=== PATIENT | male | born 1955 | race Caucasian/White ===

== ENCOUNTER 2016-12-11 07:53 | Day surgery (SDC) | payer OTHER ==
[2016-12-06 11:56] VITALS: BMI 29.1
[~2016-12-11 07:53] MED LIST: LACTATED RINGERS 1,000 ML IV SCH
[2016-12-11] MEDS ORDERED: LIDOCAINE 1% 20 ML VIAL (10MG/ML) FOR IV START INTRADERMA ONE (07:59)
[2016-12-11 08:11] VITALS: RESP 16; TEMP 98.3
[2016-12-11] MEDS ORDERED: PROPOFOL 10 MG/ML 20 ML VIAL IV ONE (09:06)
--- NOTE | 2016-12-11 09:33 | P.OP ---
Date of Procedure: 12/11/16 Preoperative Diagnosis: Screening Postoperative Diagnosis: Sigmoid polyp. Rectal polyp. Procedure(s) Performed: Colonoscopy and snare polypectomy 2 Implants: Anesthesia: MAC Surgeon: Gio Hwang Estimated Blood Loss (ml): 0 Pathology: other (Polyps 2) Condition: stable Disposition: same day Indications for Procedure: Screening Operative Findings: Minute sigmoid polyp. Minute rectal polyp. Description of Procedure: With the patient in the left lateral position rectal digital examination was normal there were no palpable masses. No prostatic masses. The video colonoscope was inserted transanally and advanced all the way to the cecum which was entered and well visualized. The mucosa were thoroughly examined. Findings was a minute the sigmoid polyp at about the 35-40 cm from the anal verge the about 3 mm in diameter. This was removed completely with the snare cautery with good hemostasis. There was a another similar polyp in the rectum at about the 12 cm from the anal verge and this was removed completely with the snare cautery with good hemostasis The patient tolerated the procedure well without any evident complication. Recommendation. High-fiber diet. Follow-up colonoscopy in 5 years in view of polyp.
[2016-12-11 09:54] VITALS: BP 111/70; PULSE 57
== END 2016-12-11 11:33 | disposition home or self-care (01) ==
LOC: ORWHC2ENDO 07:53
PROVIDERS: ATTEND Surgery
DX: Z12.11 Encounter for screening for malignant neoplasm of colon (principal); D12.5 Benign neoplasm of sigmoid colon; K62.1 Rectal polyp; Z72.0 Tobacco use
CPT/HCPCS: 88305; 45385; J2704

== ENCOUNTER → 2018-01-17 | Outpatient (CLI) | payer OTHER ==
--- NOTE | 2018-01-17 15:13 | XR ---
EXAMINATION TYPE: XR lumbar spine 2 or 3V DATE OF EXAM: 01/17/2018 CLINICAL HISTORY: Low back pain for years TECHNIQUE: Frontal and lateral images of the lumbar spine are obtained. COMPARISON: None FINDINGS: There are 5 lumbar type vertebral bodies identified assuming hypoplastic bilateral T12 rib s. The lumbar spine shows satisfactory alignment without evidence of acute fracture or dislocation. Mild anterior wedging T12 and L1 levels is presumed chronic. There is moderate disc space narrowing L 4-L5 level. There is mild to moderate multilevel anterior and lateral spurring most prominent anterio rly in the upper lumbar spine. Mild vascular calcification of the overlying abdominal aorta is seen IMPRESSION: As above.
== END | disposition home or self-care (01) ==
LOC: RADXRMAIN 14:49
PROVIDERS: ATTEND Nurse Practitioner Family
DX: M48.061 Spinal stenosis, lumbar region without neurogenic claudication (principal)
CPT/HCPCS: 72100

== ENCOUNTER → 2018-05-09 | Outpatient (CLI) | payer OTHER ==
--- NOTE | 2018-05-09 09:07 | US ---
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 Pt states low back pain, aortic calcifications seen on Xray EXAM MEASUREMENTS: Abdominal Aorta: Proximal: 2.5 x 2.0 cm Mid: 1.9 x 2.2 cm Distal: 2.2 x 2.4 cm Bifurcation: CHRISTINE: 1.1 x 1.2 cm MAYRA: 1.1 x 1.0 cm Ectatic aorta upper limits of normal measurements without evidence of AAA IMPRESSION: 1. Distal abdominal aorta is somewhat ectatic compared to the mid abdominal aorta. Maximum AP diamete r is 2.2 cm distally.
== END | disposition home or self-care (01) ==
LOC: RADUSWWP 06:45
PROVIDERS: ATTEND Internal Medicine Geriatric Medicine
DX: I77.811 Abdominal aortic ectasia (principal)
CPT/HCPCS: 93979

== ENCOUNTER → 2021-02-07 | Outpatient (CLI) | payer MEDICARE, OTHER ==
[2021-02-07 16:55] LABS: Basophils # (A) 0.03 X 10*3/uL (0.00-0.10); Basophils % (A) 0.5 %; HCT 42.9 % (39.6-50.0); HGB 14.6 g/dL (13.0-17.0); Lymphocytes # (A) 2.26 X 10*3/uL (0.90-5.00); Lymphocytes % (A) 37.7 %; MCH 31.8 pg (27.0-32.0); MCV 93.5 fL (80.0-97.0); Mean Platelet Volume 10.9 fL (9.5-12.2); Monocytes % (A) 6.7 %; Neutrophils # (A) 2.98 X 10*3/uL (1.80-7.70); Neutrophils % (A) 49.8 %; Platelet Count 209 X 10*3/uL (140-440); RBC 4.59 X 10*6/uL (4.40-5.60); RDW 13.1 % (11.5-14.5); WBC 5.99 X 10*3/uL (4.50-10.00)
[2021-02-07 18:47] LABS: Hemoglobin A1C 5.5 % (4.0-6.0)
[2021-02-07 20:57] LABS: African American GFR (CKD) 91.1 (60.0-200.0); Albumin 4.5 g/dL (3.80-4.90); Albumin/Globulin Ratio 1.8 (1.60-3.17); Anion Gap 7.6 mmol/L (4.00-12.00); Calcium 9.4 mg/dL (8.7-10.3); Carbon Dioxide 28.4 mmol/L (21.6-31.8); Chol/HDL Ratio 3.94; Globulin 2.5 g/dL (1.6-3.3); Non-African American GFR(CKD) 78.6 (60.0-200.0); Total Bilirubin 0.6 mg/dL (0.2-1.2)
[2021-02-07 21:05] LABS: PSA Annual Screen 1.6 ng/mL (0.0-4.0)
== END ==
LOC: LABWHC1 07:55
PROVIDERS: ATTEND Internal Medicine Geriatric Medicine
DX: G47.30 Sleep apnea, unspecified (principal); N40.0 Benign prostatic hyperplasia without lower urinary tract symptoms; E78.5 Hyperlipidemia, unspecified; R73.9 Hyperglycemia, unspecified
CPT/HCPCS: 80061; 80053; 84443; 85025; 83036; 36415; G0103

== ENCOUNTER 2023-06-26 10:41 | Emergency (ER) | payer MEDICARE ==
[2023-06-26] MEDS ORDERED: DIPH,PERTUS(ACELL)TETVAC-LF 0.5 ML VIAL IM ONE (11:03)
[2023-06-26 11:06] VITALS: RESP 18
--- NOTE | 2023-06-26 11:10 | ED ---
Wound/Laceration HPI - General Chief Complaint: Wound/Laceration Stated Complaint: Left arm laceration Time Seen by Provider: 06/26/23 10:56 Source: patient Mode of arrival: ambulatory Limitations: no limitations - History of Present Illness Initial Comments: The patient is a 60-year-old gentleman who presents emergency room accompanied by a family member for pain, swelling and avulsion laceration of the left posterior forearm. The patient was taking down stairs to go to an attic when the stairs slipped hitting him in the arm. There is a skin avulsion over the forearm with pain and swelling surrounding the area. He denies any head trauma loss consciousness. Patient is right-handed. His tetanus is not up-to-date. - Related Data Previous Rx's Medication Instructions Recorded Cephalexin [Keflex] 500 mg PO Q6HR #40 cap 06/26/23 Allergies Allergy/AdvReac Type Severity Reaction Status Date / Time No Known Allergies Allergy Verified 12/06/16 11:47 Review of Systems ROS Statement: Those systems with pertinent positive or pertinent negative responses have been documented in the HPI. ROS Other: All systems not noted in ROS Statement are negative. Past Medical History Past Medical History: No Reported History History of Any Multi-Drug Resistant Organisms: None Reported Past Surgical History: Appendectomy, Hernia Repair Past Anesthesia/Blood Transfusion Reactions: No Reported Reaction Smoking Status: Never smoker Past Alcohol Use History: Occasional Past Drug Use History: None Reported - Past Family History Mother Family Medical History: No Reported History General Exam Limitations: no limitations General appearance: alert Head exam: Present: atraumatic Eye exam: Present: normal appearance Extremities exam: Present: full ROM (full ROM of the elbow and wrist joint. no signs of spetic joint or compartment syndrome), other (pain and swelling over mid left posterior forearm. 3x1cm avulsion laceration mid forearm, no active bleeding) Skin exam: Present: warm, dry, other (3x1cm superficial avulsion laceration of the left mid posterior forearm, no active bleeding, no surrounding erythema or warmthj) Course Vital Signs 06/26/23 10:51 Temperature 98 F Pulse Rate 72 Respiratory 18 Rate Blood Pressure 162/94 O2 Sat by Pulse 98 Oximetry - Reevaluation(s) Reevaluation #1: 06/26/23 12:14 The wound was cleaned copiously with saline and Betadine by myself. Surgifoam was placed over the avulsed area. The wound was bandaged and wrapped by myself. Patient's tetanus has been updated today. I discussed imaging results with patient and family at bedside. X-rays are negative for fracture. There was a small metallic object seen in the x-ray however this does not correlate with the laceration per se however the wound was irrigated copiously prior to bandaging and discharge. Discussed wound care at home. Discussed signs to return to the emergency room. Discussed signs to start the antibiotic however discuss with them that I suspect he will not need the Keflex and it was only written has a precaution as they are traveling tomorrow. Procedures - Laceration Laceration #1 Indication: laceration Site: upper extremity Description: avulsion Patient Tolerated Procedure: well Additional Comments: This was a 3 cm x 1 cm oval ulcer and laceration of the left posterior forearm. There is air no edges to approximate with sutures. The wound was copiously cleaned with Betadine and saline by myself as well as saline IV nurse. Surgifoam was placed over the avulsed area. the wound was wrapped by myself. 8min total time Medical Decision Making - Medical Decision Making Was pt. sent in by a medical professional or institution (, PA, SWING MANAGER, urgent care, hospital, or skilled nursing...) When possible be specific @ -[No] Did you speak to anyone other than the patient for history (EMS, parent, family, police, friend...)? What history was obtained from this source @ -Family at bedside Did you review nursing and triage notes (agree or disagree)? Why? @ -[I reviewed and agree with nursing and triage notes] Were old charts reviewed (outside hosp., previous admission, EMS record, old EK G, old radiological studies, urgent care reports/EKG's, skilled nursing records)? Report findings @ -[No old charts were reviewed] Differential Diagnosis (chest pain, altered mental status, abdominal pain women, abdominal pain men, vaginal bleeding, weakness, fever, dyspnea, syncope, headache, dizziness, GI bleed, back pain, seizure, CVA, palpatations, mental he alth, musculoskeletal)? @ -Fracture of the forearm, skin avulsion, superficial laceration of the forearm, tetanus vaccination EKG interpreted by me (3pts min.). @ -[As above] X-rays interpreted by me (1pt min.). @ -A small metallic foreign body seen on the x-ray, copiously cleaned and bandaged. No acute fracture seen on the left forearm x-rays. CT interpreted by me (1pt min.). @ -[None done] U/S interpreted by me (1pt. min.). @ -[None done] What testing was considered but not performed or refused? (CT, X-rays, U/S, labs)? Why? @ -[None] What meds were considered but not given or refused? Why? @ -[None] Did you discuss the management of the patient with other professionals (professionals i.e. , PA, SWING MANAGER, lab, RT, psych nurse, social sciences lecturer, lead systems engineer, teacher, unemployment insurance hearing officer, casey saw operator)? Give summary @ -[No] Was smoking cessation discussed for >3mins.? @ -[No] Was critical care preformed (if so, how long)? @ -[No] Were there social determinants of health that impacted care today? How? (Homelessness, low income, unemployed, alcoholism, drug addiction, transportation, low edu. Level, literacy, decrease access to med. care, intermediate, rehab)? @ -[Patient is going on vacation and traveling tomorrow. I will write a prescription prophylactically for Keflex for the patient understands he does not need to start it unless it starts to appear red or warm. He has PTs in the family that he'll be traveling with him and may provide the wound care and injection of when to start the antibiotic. W as there de-escalation of care discussed even if they declined (Discuss DNR or withdrawal of care, Hospice)? DNR status @ -[No] What co-morbidities impacted this encounter? (DM, HTN, Smoking, COPD, CAD, Cancer, CVA, ARF, Chemo, Hep., AIDS, mental health diagnosis, sleep apnea, morbid obesity)? @ -[None] Was patient admitted / discharged? Hospital course, mention meds given and route, prescriptions, significant lab abnormalities, going to OR and other pertinent info. @ -[This is a straightforward of skin avulsion that was cleaned and repaired by myself using Surgifoam. There is no fracture seen on the x-rays and patient is stable to follow up as an outpatient. No hospitalization required at this time. Undiagnosed new problem with uncertain prognosis? @ -[No] Therapy requiring intensive monitoring for toxicity (Heparin, Nitro, Insulin, Cardizem)? @ -[No] Were any procedures done? @ -[Wound care completed by myself, see attached note] Diagnosis/symptom? @ - Skin avulsion of the left forearm, left forearm contusion, tetanus vaccination Acute, or Chronic, or Acute on Chronic? @ -[Acute Uncomplicated (without systemic symptoms) or Complicated (systemic symptoms)? @ -Uncomplicated Side effects of treatment? @ -[No] Exacerbation, Progression, or Severe Exacerbation? @ -[No] Poses a threat to life or bodily function? How? (Chest pain, [place], [place], pneumonia, PE, COPD, DKA, ARF, appy, cholecystitis, CVA, Diverticulitis, Homicidal, Suicidal, threat to staff... and all critical care pts) @ -[No] - Radiology Data Radiology results: report reviewed, image reviewed Disposition Clinical Impression: Contusion of left forearm, Superficial laceration of forearm, Tetanus toxoid vaccination administered at current visit Disposition: HOME SELF-CARE Condition: Good Instructions (If sedation given, give patient instructions): Diphtheria/Acellular Pertussis/Tetanus Vaccine (By injection), Laceration (ED), Contusion in Adults (ED), Skin Avulsion (ED) Prescriptions: Cephalexin [Keflex] 500 mg PO Q6HR #40 cap Is patient prescribed a controlled substance at d/c from ED?: No Referrals: Milind Myers MD [Primary Care Provider] - 1-2 days Time of Disposition: 12:18
[2023-06-26] MEDS ORDERED: GELATIN SPONGE,ABSORB (LARGE) 1 EACH SPONGE TOPICAL STA (11:36)
--- NOTE | 2023-06-26 11:43 | XR ---
EXAMINATION TYPE: XR forearm LT DATE OF EXAM: 06/26/2023 COMPARISON: NONE HISTORY: Laceration with pain Two views of the forearm demonstrate that the osseous structures appear to be intact and the joint sp aces appear to be preserved. There is no acute fracture or dislocation. There is a small metallic f oreign body densities all within the soft tissues. There is soft tissue edema forming along the radia l margin laceration mild narrowing of the radiocarpal joint and first carpometacarpal. Marginal spurr ing. IMPRESSION: 1. No acute fracture or dislocation. 2. Punctate metallic foreign body along the mid forearm adjacent to the ulnar
[2023-06-26 13:10] VITALS: BP 122/79; PULSE 70; TEMP 98.1
== END 2023-06-26 15:06 | disposition home or self-care (01) ==
LOC: EC 10:41
DX: S50.12XA Contusion of left forearm, initial encounter (principal); Z23 Encounter for immunization; W01.10XA Fall on same level from slipping, tripping and stumbling with subsequent striking against unspecified object, initial encounter
CPT/HCPCS: 12001; 90471; 90715; 99283